=== PATIENT | female | born 1995 | race African-American/Black ===

== ENCOUNTER 2017-11-30 09:01 | Day surgery (SDC) | payer BC ==
[2017-11-27 13:43] LABS: MICROSCOPIC AUTO
[2017-11-27 13:45] LABS: BASOPHILS # (AUTO) 0.02 x10^3/uL (0-0.1); BASOPHILS % (AUTO) 0 % (0-1); EOSINOPHILS # (AUTO) 0.04 x10^3/uL (0-0.4); EOSINOPHILS % (AUTO) 1 % (1-7); LYMPHOCYTES # (AUTO) 2.32 x10^3/uL (1-3.4); LYMPHOCYTES % (AUTO) 37 % (22-44); MD NO; MEAN CORPUSCULAR HEMOGLOBIN 30.1 pg (27.0-34.8); MEAN CORPUSCULAR HGB CONC 34.1 g/dL (32.4-35.8); MEAN CORPUSCULAR VOLUME 88.2 fL (80-100); MEAN PLATELET VOLUME 7.8 fL (7.4-10.4); MONOCYTES # (AUTO) 0.64 x10^3/uL (0.2-0.8); MONOCYTES % (AUTO) 10 % (2-9); NEUTROPHILS # (AUTO) 3.28 x10^3/uL (1.8-6.8); NEUTROPHILS % (AUTO) 52 % (42-75); PLATELET COUNT 344 x10^3/uL (130-400); RED BLOOD COUNT 4.86 x10^6/uL (3.82-5.3)
[2017-11-27 13:47] LABS: CULTURE INDICATED? YES
[2017-11-27 13:53] LABS: ANION GAP 8 mmol/L (5-15); CALCIUM 8.5 mg/dL (8.5-10.1); CHLORIDE 107 mmol/L (98-107); CREATININE 0.89 mg/dL (0.55-1.02)
[~2017-11-30] VITALS: Ht 162.6 cm; Wt 87.0 kg
[~2017-11-30 09:01] MED LIST: None per pt
[2017-11-30] MEDS ORDERED: LACTATED RINGERS 1,000 ML IV SCH (09:25)
[2017-11-30 09:30] VITALS: BP 120/80
[2017-11-30] MEDS ORDERED: APREPITANT 40 MG CAPSULE PO ONE (09:37)
[2017-11-30] MEDS ORDERED: APREPITANT 40 MG CAPSULE PO STA (09:37)
[2017-11-30] MEDS ORDERED: APREPITANT 40 MG CAPSULE ONE (09:43)
[2017-11-30 10:02] LABS: HCG UR SG 1.024 (1.003-1.030)
[2017-11-30] MEDS ORDERED: LIDOCAINE 1%, 50ML ONE (10:50)
[2017-11-30] MEDS ORDERED: EPINEPHRINE 1 MG/ML, 1ML ONE (10:50)
[2017-11-30] MEDS ORDERED: MIDAZOLAM 1 MG/ML, 2ML ONE (11:13)
[2017-11-30] MEDS ORDERED: FENTANYL PF 250 MCG/5ML ONE (11:14)
[2017-11-30] MEDS ORDERED: LIDOCAINE 4%, 4 ML SYR/CANN TP ONE (11:20)
[2017-11-30] MEDS ORDERED: ROCURONIUM 10 MG/ML,10ML ONE (11:21)
[2017-11-30] MEDS ORDERED: DEXAMETHASONE 4 MG/ML, 1ML ONE (11:21)
[2017-11-30] MEDS ORDERED: GLYCOPYRROLATE 0.2MG/1ML, 5ML ONE (11:21)
[2017-11-30] MEDS ORDERED: ONDANSETRON 2MG/ML, 2ML ONE (11:21)
[2017-11-30] MEDS ORDERED: PROPOFOL 10 MG/ML, 20ML ONE (11:21)
[2017-11-30] MEDS ORDERED: CEFAZOLIN 1,000 MG ONE (11:21)
[2017-11-30] MEDS ORDERED: SUCCINYLCHOLINE 20 MG/ML, 10ML ONE (11:21)
[2017-11-30] MEDS ORDERED: NEOSTIGMINE 1 MG/ML, 10ML ONE (11:21)
[2017-11-30] MEDS ORDERED: OXYcodone 5 MG/5 ML ORAL.SOL UDC PO PRN (11:30)
[2017-11-30] MEDS ORDERED: ACETAMINOPHEN 325 MG TABLET PO PRN (11:30)
[2017-11-30] MEDS ORDERED: HYDROmorphone 1 MG/ML, 1ML IV PRN (11:30)
[2017-11-30] MEDS ORDERED: FENTANYL PF 100 MCG/2ML IV PRN (11:30)
[2017-11-30] MEDS ORDERED: ONDANSETRON 2MG/ML, 2ML IVPush PRN (11:30)
[2017-11-30] MEDS ORDERED: HYDROcodone/APAP 7.5-325MG/15ML UDC PO PRN (11:30)
[2017-11-30] MEDS ORDERED: KETOROLAC 30 MG/1 ML ONE (11:36)
[2017-11-30] MEDS ORDERED: FENTANYL PF 100 MCG/2ML ONE (12:58)
[2017-11-30] MEDS ORDERED: OXYcodone 5 MG/5 ML ORAL.SOL UDC ONE (12:58)
[2017-11-30] MEDS ORDERED: ACETAMINOPHEN 650 MG/20.3 ML UDC ONE (12:59)
== END 2017-11-30 17:00 | disposition home or self-care (01) ==
LOC: OUT 09:01
PROVIDERS: ATTEND Obstetrics & Gynecology Gynecology
DX: N80.3 Endometriosis of pelvic peritoneum (principal)
CPT/HCPCS: 36415; 58662; 80048; 81001; 81025; 84703; 85025; 87086; 88305; J0171; J0330; J0690; J1100; J1885; J2250; J2405; J2704; J2710; J3010; J3490; J7120; J8501